=== PATIENT | male | born 1995 | race Two or more races ===

== ENCOUNTER 2020-01-03 11:05 | Emergency (ER) | payer MEDICAID, OTHER ==
[~2020-01-03] VITALS: Ht 180.3 cm; Wt 81.6 kg
[2020-01-03 12:09] LABS: Basophils # (auto) 0 10 ^3/uL (0-0.2); Basophils % (auto) 0.3 % (0.0-2.0); Eosinophils # (auto) 0 10 ^3/uL (0-0.8); Eosinophils % (auto) 0.2 % (0.0-7.0); Hematocrit 43.6 % (41.0-53.0); Hemoglobin 14.6 g/dL (13.5-17.5); Lymphocytes # (auto) 1.2 10 ^3/uL (0.4-5.4); Lymphocytes % (auto) 11.6 % (10.0-50.0); Mean Corpuscular Hemoglobin 30.1 pg (28.0-32.0); Mean Corpuscular Hgb Conc. 33.4 g/dL (32.0-36.0); Mean Corpuscular Volume 89.9 fL (80.0-100.0); Monocytes # (auto) 0.5 10 ^3/uL (0-1.3); Neutrophils # (auto) 8.8 10 ^3/uL (1.6-8.6); Neutrophils % (auto) 82.9 % (37.0-80.0); Platelet Count (auto) 229 10^3/uL (140-450); Red Blood Cells 4.85 10^6/uL (4.5-5.90); Red Cell Distribution Width 13.8 % (11.8-14.3); White Blood Cell 10.7 10^3/uL (4.4-10.8)
[2020-01-03 12:10] LABS: Albumin 4.2 g/dL (3.4-5.0); Calcium 9.2 mg/dL (8.5-10.1); Potassium 3.8 mmol/L (3.5-5.1)
[2020-01-03 12:14] LABS: BUN/Creatinine Ratio 14.1; Bilirubin, Total 0.2 mg/dL (0.2-1.0); Total Protein 7.8 g/dL (6.4-8.2)
[2020-01-03 12:32] LABS: Alcohol, Urine < 3.0 mg/dL (0-10); Amphetamine Screen, Urine NEGATIVE (NEGATIVE); Barbiturate Scree,Urine NEGATIVE (NEGATIVE); Benzodiazephine Screen, Urine NEGATIVE (NEGATIVE); Cannabinoid Screen, Urine NEGATIVE (NEGATIVE); Cocaine Screen, Urine NEGATIVE (NEGATIVE); Opiate Scree,Urine NEGATIVE (NEGATIVE); Phencyclidine Screen, Urine NEGATIVE (NEGATIVE)
[2020-01-03 12:38] LABS: Urine Bacteria FEW /hpf (None Seen); Urine Blood Negative /uL (Negative); Urine Mucus FEW (None Seen); Urine Specific Gravity 1.021 (1.001-1.035); Urine WBC 1 /hpf (0 - 3)
[2020-01-03] MEDS ORDERED: SODIUM CHLORIDE 0.9% 1,000 ML IV ONE (14:45)
[2020-01-03] MEDS ORDERED: METHADONE HCL 10 MG TAB PO ONE (15:45)
[2020-01-03] MEDS ORDERED: ALPRAZolam 0.5 MG TAB PO ONE (15:45)
[2020-01-04] MEDS ORDERED: NICOTINE 14 MG/24HR TOPICAL PATCH TD ONE (08:15)
[2020-01-04] MEDS ORDERED: ALPRAZolam 0.5 MG TAB PO ONE (09:15)
[2020-01-04] MEDS: METHADONE HCL 10 MG TAB PO SCH (09:33)
[2020-01-04] MEDS: ALPRAZolam 0.5 MG TAB PO SCH ×2 (14:47→21:59)
[2020-01-05] MEDS: ALPRAZolam 0.5 MG TAB PO SCH ×3 (06:54→23:10)
[2020-01-05] MEDS: METHADONE HCL 10 MG TAB PO SCH (10:05)
[2020-01-06] MEDS ORDERED: METHADONE HCL 10 MG TAB PO ONE (11:30)
[2020-01-06] MEDS ORDERED: ALPRAZolam 0.5 MG TAB PO ONE ×2 (11:30→21:00)
[2020-01-06] MEDS ORDERED: ALPRAZolam 0.5 MG TAB ONE (21:18)
[2020-01-07] MEDS ORDERED: METHADONE HCL 10 MG TAB PO ONE (00:15)
[2020-01-07] MEDS ORDERED: METHADONE HCL 10 MG TAB ONE (00:22)
[2020-01-07 00:51] VITALS: BP 146/53
== END 2020-01-07 00:52 | disposition home or self-care (01) ==
LOC: ER 11:05
DX: F11.23 Opioid dependence with withdrawal (principal); R45.851 Suicidal ideations; F17.210 Nicotine dependence, cigarettes, uncomplicated; R19.7 Diarrhea, unspecified; R25.1 Tremor, unspecified
CPT/HCPCS: 36415; 80053; 80307; 81001; 83735; 85025; 87426; 93005